=== PATIENT | male | born 1970 | race Two or more races ===

== ENCOUNTER 2017-09-09 15:12 | Emergency (ER) | payer OTHER ==
--- NOTE | 2017-09-09 17:00 | RAD ---
INDICATION: Right elbow pain. TECHNIQUE: 4 views of the right elbow were obtained. FINDINGS: The bones are in normal alignment. No joint effusion or acute fracture is seen. There is mild osteoarthritic change. There are small calcific densities adjacent to the proximal ulna. IMPRESSION: MILD OSTEOARTHRITIC CHANGE.
[2017-09-09] MEDS ORDERED: Ketorolac INJ* 30 MG/ML 1 ML VIAL IM ONE (17:40)
--- NOTE | 2017-09-09 17:40 | ED ---
Upper Extremity Pain - HPI Summary HPI Summary: 47-year-old male presents with right elbow pain for the past 2 weeks. He denies any injury. No numbness or tingling. Tenderness over his lateral epicondyle. Is worse when he tries to work and is trying to flex and extend his wrist. He's never had this pain before. 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 No shoulder pain. No chest pain or shortness of breath. Has been taking ibuprofen for pain. He states it hurts the most when he tries to lift something. - History of Current Complaint Chief Complaint: EDExtremityUpper Stated Complaint: RT ARM PAIN/SWELING Time Seen by Provider: 09/09/17 16:58 - Allergies/Home Medications Allergies/Adverse Reactions: Allergies Allergy/AdvReac Type Severity Reaction Status Date / Time No Known Allergies Allergy Verified 09/09/17 15:18 PMH/Surg Hx/FS Hx/Imm Hx Endocrine/Hematology History: Denies: Hx Anticoagulant Therapy Cardiovascular History: Denies: Hx Myocardial Infarction Infectious Disease History: No Infectious Disease History: Denies: Traveled Outside the [place] in Last 30 Days - Family History Known Family History: Positive: Hypertension - Social History Alcohol Use: Occasionally Substance Use Type: Reports: None Smoking Status (MU): Light Every Day Tobacco Smoker Review of Systems Negative: Fever Negative: Chest Pain Negative: Shortness Of Breath Positive: Myalgia - right elbow pain All Other Systems Reviewed And Are Negative: Yes Physical Exam Triage Information Reviewed: Yes Vital Signs On Initial Exam: Initial Vitals Temp Pulse Resp BP Pulse Ox 98.1 F 73 18 149/88 99 09/09/17 15:15 09/09/17 15:15 09/09/17 15:15 09/09/17 15:15 09/09/17 15:15 Vital Signs Reviewed: Yes Appearance: Positive: Well-Appearing Skin: Positive: Warm, Dry Head/Face: Positive: Normal Head/Face Inspection Eyes: Positive: Normal, Conjunctiva Clear ENT: Positive: Pharynx normal Respiratory/Lung Sounds: Positive: Clear to Auscultation, Breath Sounds Present Cardiovascular: Positive: Normal, RRR Musculoskeletal: Positive: Other - tenderness over right lateral epicodylitis, tenderness with pronation and flexion over lateral epicodycle, good pulses, nontender over olcranon process, no erythema or edema to joint Neurological: Positive: Normal Psychiatric: Positive: Normal Diagnostics - Vital Signs Vital Signs Temp Pulse Resp BP Pulse Ox 09/09/17 15:15 98.1 F 73 18 149/88 99 - Laboratory Lab Statement: Any lab studies that have been ordered have been reviewed, and results considered in the medical decision making process. - Radiology elbow Xray Interpretation: No Acute Changes - arthritis Radiology Interpretation Completed By: Radiologist Course/Dx - Course Course Of Treatment: 47-year-old male presents with right elbow pain for the past 2 weeks. He denies any injury. No numbness or tingling. Tenderness over his lateral epicondyle. Is worse when he tries to work and is trying to flex and extend his wrist. He's never had this pain before. 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 No shoulder pain. No chest pain or shortness of breath. Has been taking ibuprofen for pain. He states it hurts the most when he tries to lift something. On exam tenderness over lateral epicondyle on right elbow. neurovascular intact. xray showsarthritis. X-ray shows a history of arthritis. Explained likely has a tennis elbow. Told to use rice. Patient understands agrees with plan. - Diagnoses Differential Diagnosis/HQI/PQRI: Positive: Fracture (Closed), Strain, Sprain Provider Diagnoses: Right elbow pain Discharge - Sign-Out/Discharge Documenting (check all that apply): Patient Departure - Discharge Plan Condition: Good Disposition: HOME Patient Education Materials: Tennis Elbow (ED) Forms: *Work Release Referrals: Flip Flores MD [Primary Care Provider] - Patti Arreola MD [Medical Doctor] - Additional Instructions: Take Tylenol or ibuprofen every 6 hours as needed for pain Apply ice, rest, elevate Keep minal on area Follow up with ortho Return to ED if develop any new or worsening symptoms - Billing Disposition and Condition Condition: GOOD Disposition: Home
[2017-09-09 17:58] VITALS: BP 138/72
== END 2017-09-09 17:56 | disposition home or self-care (01) ==
LOC: ED 15:12
DX: M25.521 Pain in right elbow (principal); M19.021 Primary osteoarthritis, right elbow; F17.200 Nicotine dependence, unspecified, uncomplicated
CPT/HCPCS: 96372; 99282; J1885

== ENCOUNTER 2018-09-17 09:01 | Emergency (ER) | payer SELFPAY ==
[2018-09-17 09:12] VITALS: BP 144/93
--- NOTE | 2018-09-17 09:36 | UC ---
Lower Extremity/Ankle HPI - HPI Summary HPI Summary: Patient is a 48-year-old male here with multiple bites. Patient has had left lower leg pain and tingling for the past 2 days. Patient's pain is located in his left buttock and goes down his leg. In addition, patient had right arm pain with 10 minutes of tingling. Patient's symptoms have resolved and his upper extremity. Patient has no change in vision, difficulty speaking, headache. Patient has no saddle anesthesia or bowel/bladder dysfunction - History of Current Complaint Chief Complaint: UCUpperExtremity Stated Complaint: L SIDE NUMBNESS,MOUTH COMPLAINT Time Seen by Provider: 09/17/18 09:12 Hx Obtained From: Patient Onset/Duration: Gradual Onset Severity Initially: Moderate Severity Currently: Mild Pain Intensity: 7 - Allergies/Home Medications Allergies/Adverse Reactions: Allergies Allergy/AdvReac Type Severity Reaction Status Date / Time No Known Allergies Allergy Verified 09/17/18 09:12 Home Medications: Home Medications Acetaminophen TAB* [Tylenol TAB*] 650 mg PO Q4H PRN 09/17/18 [History Confirmed 09/17/18] traMADol TAB* [Ultram*] 50 mg PO Q6HR PRN 09/17/18 [History Confirmed 09/17/18] PMH/Surg Hx/FS Hx/Imm Hx Cardiovascular History: Hypertension Other History Of: Negative For: Anticoagulant Therapy - Surgical History Surgical History: None - Family History Known Family History: Positive: Hypertension, Other - stroke - Social History Alcohol Use: Daily Alcohol Amount: 2 beers Substance Use Type: None Smoking Status (MU): Never Smoked Tobacco Review of Systems All Other Systems Reviewed And Are Negative: Yes Constitutional: Negative: Fever, Chills Skin: Negative: Rash Eyes: Negative: Blurred Vision, Diplopia ENT: Positive: Negative Respiratory: Positive: Negative Cardiovascular: Positive: Negative Gastrointestinal: Positive: Negative Genitourinary: Positive: Negative Neurovascular: Negative: Decreased Sensation Neurological: Negative: Headache, Weakness, Paresthesia, Numbness Physical Exam - Summary Physical Exam Summary: Vital Signs Reviewed: Yes A+Ox3, no distress Eyes: Conjunctiva Clear, PERRL. EOM intact and full ENT: Hearing grossly normal TM x 2 clear, moist, uvula midline, no exudate, no erythema Neck: Positive: Supple Respiratory: Positive: No respiratory distress, No accessory muscle use + CTA throughout no w/r Cardiovascular: RRR nl s1, s2 no m/r CBT <2 sec abd soft + BS nt/nd no guarding, no distension Musculoskeletal Exam: BRUNO x 4 without difficulty Strength Intact, ROM Intact Neurological: Cranial nerves II through XII intact. Sensation intact in upper extremities. Full strength in upper extremities and lower extremities. Left leg with small area of decreased sensation of the lateral aspect. Negative straight leg raise bilaterally. Patient is able to stand on his toes and heels. Patient has an antalgic gait significant pain in his lower back Psychological: Positive: Normal Response To Family Skin: Positive: no rash, no ecchymosis Triage Information Reviewed: Yes Vital Signs: Initial Vital Signs Temp 96.1 F 09/17/18 09:06 Pulse 70 09/17/18 09:06 Resp 16 09/17/18 09:06 BP 144/93 09/17/18 09:06 Pulse Ox 97 09/17/18 09:06 Lower Extremity Course/Dx - Course Course Of Treatment: Patient is here with pain and numbness in his left lower extremity consistent with radiculopathy. Patient had some numbness in his right upper extremity no objective neurologic findings there. Patient has otherwise normal neurologic exam with symptoms that are not consistent with a CVA. Patient's pain concern was for CVA secondary to his family history. Patient was instructed that if he wants to be evaluated for stroke, he has to the emergency department. Patient was careful being discharged here with a Medrol Dosepak for his radicular symptoms. Patient's symptoms were not consistent with epidural abscess or cauda equina. - Differential Dx/Diagnosis Differential Diagnosis/HQI/PQRI: Sciatica, Sprain, Strain, Other - Not CVA, not cauda equina, not epidural abscess Provider Diagnosis: Radiculopathy, Left leg pain Discharge - Sign-Out/Discharge Documenting (check all that apply): Patient Departure All imaging exams completed and their final reports reviewed: No Studies - Discharge Plan Condition: Stable Disposition: HOME Prescriptions: Ibuprofen TAB* [Motrin TAB* 600 MG] 600 mg PO Q6H PRN #20 tab PRN Reason: Pain methylPREDNISolone [Medrol Dosepak 4 MG*] 0 mg PO .SEE TATIANA INSTRUCTION #1 packet Patient Education Materials: Lumbar Radiculopathy (ED), Cervical Radiculopathy (ED) Referrals: [facility] [Outside] No Primary Care Phys,NOPCP [Primary Care Provider] - Additional Instructions: Please take her medications as prescribed Please go to the emergency department if he have any concerning neurologic symptoms which include one-sided weakness, one-sided numbness, difficulty speaking, change in vision - Billing Disposition and Condition Condition: STABLE Disposition: Home
== END 2018-09-17 09:41 | disposition home or self-care (01) ==
LOC: UCEAST 09:01
DX: M54.10 Radiculopathy, site unspecified (principal); M79.662 Pain in left lower leg; I10 Essential (primary) hypertension
CPT/HCPCS: 99212; G0463

== ENCOUNTER 2023-10-30 15:39 | Observation (INO) ==
[2023-10-30 17:11] LABS: ABS Basophils 0.1 10^3/uL (0.0-0.1); ABS Eosinophils 0.2 10^3/uL (0.0-0.5); ABS Lymphocytes 2.1 10^3/uL (1.0-4.8); ABS Monocytes 0.4 10^3/uL (0.0-1.1); ABS Neutrophils 2.4 10^3/uL (1.5-7.6); Eosinophil % 3.5 %; Hematocrit 40.8 % (38-53); Hemoglobin 13.7 g/dL (13.2-16.3); Lymphocyte % 40.4 %; Mean Corpuscular Hemoglobin 30.7 pg (27-33); Mean Corpuscular Hgb Conc 33.6 g/dL (31-36); Mean Corpuscular Volume 91.4 fL (80-97); Mean Platelet Volume 7.8 fL (7.5-11.2); Nucleated Red Blood Cells % 0.1 %/100WBC (0.0-0.8); Platelet Count 188 10^3/uL (150-450); Red Blood Count 4.47 10^6/uL (4.06-5.63); Red Cell Distribution Width 13.1 % (12-17); White Blood Count 5.1 10^3/uL (3.6-10.2)
[2023-10-30 17:42] LABS: Urine Appearance Clear; Urine Bilirubin Negative (Negative); Urine Blood 2+ (Negative); Urine Color Light-Yellow; Urine Glucose Negative (Negative); Urine Ketones Negative (Negative); Urine Nitrite Negative (Negative); Urine Protein Negative (Negative); Urine Specific Gravity 1.031 (1.002-1.030); Urine Urobilinogen Negative (Negative); Urine pH 6.5 (5.0-8.0)
[2023-10-30 17:52] LABS: Urine Bacteria Absent /HPF (Absent); Urine Red Blood Cell 3+(>10/hpf) /HPF (0-Trace); Urine White Blood Cell Trace(0-5/hpf) /HPF (0-Trace)
[2023-10-30 18:09] LABS: Albumin 4.1 g/dL (3.2-5.2); Albumin/Globulin Ratio 1.8 (1-3); Calcium 8.6 mg/dL (8.6-10.3); Creatinine, Serum 1.03 mg/dL (0.67-1.17); Globulin 2.3 g/dL (2-4); Potassium 3.9 mmol/L (3.5-5.0); Total Bilirubin 0.5 mg/dL (0.2-1.0); Total Protein 6.4 g/dL (6.4-8.9); eGFR CKD-EPI 86.9 (>60)
[2023-10-30] MEDS: Iohexol 350 (CONTRAST) 500 ML MDV IV ONE (19:16)
[2023-10-30] MEDS ORDERED: Sulfur Hexaflouride MICROSPHR 25 MG VIAL IV PRN (21:43)
[2023-10-30 23:19] LABS: HDL Cholesterol 53.5 mg/dL
[2023-10-31] MEDS: Enoxaparin 40 MG/0.4 ML SYR SUBCUT SCH ×2 (05:15→09:40)
[2023-10-31 12:52] VITALS: BP 154/54
== END 2023-10-31 12:54 | disposition home or self-care (01) ==
LOC: EDHOLD 15:39 → ED 15:39 → EDHOLD 10-31 12:53
PROVIDERS: ADMIT Internal Medicine; ATTEND Internal Medicine